=== PATIENT | female | born 1950 | race Caucasian/White ===

== ENCOUNTER → 2018-07-03 | Outpatient (CLI) | payer OTHER ==
[~2018-07-03] VITALS: Ht 170.2 cm; Wt 142.4 kg
[~2018-07-03] MED LIST: ACTOS; ACTOS 30 MG TAB30 MG PO; ADULT LOW DOSE81 MG PO; ALLOPURINOL; ALLOPURINOL 10100 M1 PO; ALLOPURINOL 30300 M1 PO; ALLOPURINOL 30300 M3 PO; ALPRAZOLAM 0.50.5 M1 PO; AMARYL4 MG PO; ANORO ELLIPTA1 EACH INH; ASPIR 8181 MG PO; BACTRIM DS TAB1 EACH PO; CELEXA40 MG PO; COLACE 100 MG100 MG OR; DEMADEX 2020 MG/1 TA PO; ELIQUIS5 MG PO; FENOFIBRATE200 MG PO; FLUOXETINE; HYDROCODON-ACE1 EAC8 OR; IPRAT-ALBUT 0.5-3 ML INH; JANUVIA100 MG PO; LANTUS100 UNIT/M SUBQ; LIPOFEN150 MG PO; LIPOFEN50 MG PO; LISINOPRIL; LORTAB 5 MG/5001 TA1; LYRICA 75 MG CA75 MG PO; METOPROLOL TART25 MG PO; NORCO 5-325 TA1 EACH PO; NOVOLOG100 UNIT/1 SUBQ; PANTOPRAZOLE SO40 M1 PO; PERCOCET 10-321 EACH PO; PREDNISONE 10 M10 MG PO; PROZAC 20 MG20 M1 PO; TOPROL XL25 MG PO; TRESIBA FL100 UNIT/1 SUBQ; XANAX 0.5 MG0.5 MG PO
--- NOTE | ~2018-07-03 | P ---
[facility] [address] [place] [address] PROCEDURE REPORT Name: LUIS MATOS Room #: REG [facility] Mary#: [id number] Admission: 07/03/18 Attend Phys: Xander Lord Discharge: Date of : 50 Report #: [id number] THIS REPORT FOR: //name// CC: Xander Melendrez MD DATE OF SERVICE: 07/03/2018 PROCEDURE PERFORMED: Upper endoscopy with biopsies. HISTORY OF PRESENT ILLNESS: The patient is a 68-year-old female who was hospitalized in April of this year with possible pancreatitis. At that time was also diagnosed with DVT, pulmonary embolus, was placed on heparin, later Eliquis. Plan was for upper endoscopy when the patient stabilized. She also has a mass along the right sacrococcygeal area. This measured 11 x [address] on 04/20/2018. An MRI was later performed on 04/22/2018 of this area, which showed a large calcified lesion containing fat within the right gluteal soft tissue, consider the possibility of sarcoma or fat containing soft tissue mass. The patient denies any abdominal pain at this time. She denies a biopsy of this lesion as of yet. She denies any dysphagia. No nausea or vomiting. She has been tolerating diet well. No previous history of pancreatitis. Her lipase was normal during her hospitalization. She does take Tums on a p.r.n. basis. DESCRIPTION OF PROCEDURE: The risks and benefits of the procedure were explained to the patient, those risks including but not limited to bleeding, perforation, the risk of sedation. She understood these risks and gave informed consent. Sedation was given using ketamine and propofol per anesthesia. Next, using a standard Olympus upper endoscope, the scope was placed in the patient's mouth and advanced under direct vision through the esophagus, stomach and into the second portion of the duodenum. The esophagus was normal throughout. The GE junction was normal. The gastric fundus and body were normal. A mild gastritis was noted in the gastric antrum. No evidence of ulcerations or erosions. Biopsies were obtained to rule out H. pylori. The pylorus was normal and patent. The duodenal bulb, first and second portion were all normal. The scope was then withdrawn and the procedure terminated. The patient tolerated the procedure well. IMPRESSION: 1. Mild gastritis. 2. Otherwise, normal upper endoscopy. RECOMMENDATIONS: 1. Await biopsy results. 2. The patient denies any significant heartburn at this time. She is using Tums on a p.r.n. basis. There is no evidence of esophagitis or ulcers today. [address] [address] PROCEDURE REPORT Name: LUIS MATOS Room #: REG [facility] Hernandez#: [id number] Admission: 07/03/18 Attend Phys: Xander Lord Discharge: Date of : 50 Report #: [id number] If she has increased symptoms in the future, could consider daily PPI therapy or H2 huma. Thank you for allowing me to participate in her care. By: [id number] Xander Huynh MD /nt
--- NOTE | ~2018-07-03 | PATH ---
[facility] [place] [address] PATHOLOGY RPT PROCEDURE Name: LUIS MATOS Room #: REG [facility].#: [id number] Admission: 07/03/18 Date of : 50 Discharge: Report #: [id number] Path Case #: [id number] [facility] Accession Number: [id number] . 01 Material submitted: . BX OF GASTRIC R/O GASTRITIS . 01 Clinician provided ICD-10: K25.9 . 01 Clinical history: . Pre-OP DX: Ulcer Post-OP DX: Gastritis . 02 Diagnosis: Gastric biopsy, "biopsy of gastric mucosa": - Mild chronic reactive gastropathy. - There is no acute ulceration seen. - The immunoperoxidase stain for Helicobacter pylori is negative. . (SHA:waqar; 07/04/2018) JUDY/07/04/2018 . 02 Electronically signed: . Basilio Brady MD, Pathologist NPI- [id number] . 01 Gross description: . Received in formalin labeled "Luis Matos, BX of gastric, rule out gastritis," are 3 segments of davies soft tissue measuring 1.2 x 0.8 x 0.2 cm in aggregate dimensions and ranging from 0.5 to 0.7 cm in maximum dimension. The specimen is submitted entirely in cassette A1. (TSD; 07/03/2018) TOB/TOB . 02 Pathologist provided ICD-10: K31.9 . 02 CPT . 568599, [id number] Specimen Comment: A courtesy copy of this report has been sent to Specimen Comment: [phone], . Specimen Comment: Report sent to / DR SCHMITT Specimen Comment: A duplicate report has been generated due to demographic updates. Performed at: [address] [address] [place] [address] PATHOLOGY RPT PROCEDURE Name: LUIS MATOS Room #: REG [facility].#: [id number] Admission: 07/03/18 Date of : 50 Discharge: Report #: [id number] Path Case #: [id number] [address] [id number] MD Michael Baptiste MD Phone: [phone] Performed at: [address] [place], [place] [id number] MD Tiffany Cortes MD Phone: [phone]
== END | disposition home or self-care (01) ==
LOC: GI 06-19 09:39
DX: K31.9 Disease of stomach and duodenum, unspecified (principal); K29.70 Gastritis, unspecified, without bleeding; I82.409 Acute embolism and thrombosis of unspecified deep veins of unspecified lower extremity; I26.99 Other pulmonary embolism without acute cor pulmonale; I10 Essential (primary) hypertension; E11.9 Type 2 diabetes mellitus without complications; I48.91 Unspecified atrial fibrillation; J43.9 Emphysema, unspecified; M10.9 Gout, unspecified; Z79.4 Long term (current) use of insulin; Z90.5 Acquired absence of kidney; Z90.49 Acquired absence of other specified parts of digestive tract; Z98.890 Other specified postprocedural states; Z79.899 Other long term (current) drug therapy; Z79.01 Long term (current) use of anticoagulants; Z88.8 Allergy status to other drugs, medicaments and biological substances
CPT/HCPCS: 62110; 62900

== ENCOUNTER 2019-03-21 00:11 | Emergency (ER) | payer OTHER ==
[~2019-03-21] VITALS: Ht 170.2 cm; Wt 137.4 kg
[2019-03-21] MEDS ORDERED: ACYCLOVIR 800800 MG PO (02:34)
[2019-03-21] MEDS ORDERED: MEDROLDOSEPACK PO (02:34)
[2019-03-21 02:45] VITALS: BP 128/68
== END 2019-03-21 02:49 | disposition home or self-care (01) ==
LOC: ER 00:11
DX: B02.9 Zoster without complications (principal); I10 Essential (primary) hypertension; E11.9 Type 2 diabetes mellitus without complications; J44.9 Chronic obstructive pulmonary disease, unspecified; M10.9 Gout, unspecified; Z86.19 Personal history of other infectious and parasitic diseases; Z90.5 Acquired absence of kidney; Z90.49 Acquired absence of other specified parts of digestive tract; Z86.711 Personal history of pulmonary embolism; Z86.718 Personal history of other venous thrombosis and embolism; Z88.6 Allergy status to analgesic agent; Z88.1 Allergy status to other antibiotic agents; Z88.8 Allergy status to other drugs, medicaments and biological substances; Z98.890 Other specified postprocedural states; Z79.4 Long term (current) use of insulin